=== PATIENT | female | born 1965 | race Caucasian/White ===

== ENCOUNTER 2017-06-19 11:51 | Day surgery (SDC) | payer MEDICAID, OTHER ==
[~2017-06-19] VITALS: Ht 157.5 cm; Wt 72.7 kg
[2017-06-19 12:39] VITALS: Ht 157.5 cm; Wt 72.7 kg
[2017-06-19] MEDS ORDERED: [UNRECOGNIZED DRUG - REMARK] (12:47)
[2017-06-19 13:06] VITALS: BP 119/58; PULSE 68; RESP 20
[2017-06-19] MEDS ORDERED: PROPOFOL 20 ML ONE ×2 (13:43→15:34)
--- NOTE | 2017-06-19 15:41 | OPPN ---
Date/Time of Note Date/Time of Note DATE: 06/19/17 TIME: 15:38 Proc Note GI Procedure Date 06/19/17 Indication: screening/surveillance Pre-procedure Diagnosis Colorectal cancer screening Post-procedure Diagnosis Impression: 6 mm polyp in the proximal transverse colon. Snared and retrieved Moderate-sized internal hemorrhoids. Otherwise normal colonoscopy to cecum. Plan: Follow up as scheduled] High fiber diet Annual hemoccult stool testing [Review pathology] [Surveillance colonoscopy in 5 years] . Procedure Performed: Colonoscopy (With snare polypectomy) Surgeon VICTORIA ADAMES MD See signature line Correction[facility] Case Records Supervisor none Anesthesia Type: MAC Anesthesiologist: MIESHA LOTT MD Tourniquet Time none EBL none Transfusion required none Biopsy 1: None Polyp 1: Proximal transverse colon polyp Grafts/Implants none Tubes/Drains none Complication(s) none Procedure Description After informed consent, with the patient/relatives understanding the procedure, its indications and potential risks and complications, including but not limited to: Allergic reaction, bleeding, perforation, infection, and after all pertinent questions were answered to the patient's satisfaction, the patient/ relatives signed the witnessed informed consent. Following this, premedication was administered slowly IV push under careful cardiovascular and respiratory monitoring with pulse OXIMETRY, automatic blood pressure, and night monitor. Once the sedative effect was achieved, the patient was placed in the left lateral decubitus position, digital rectal examination was performed. The colonoscope was then introduced and advanced under visual control throughout all segments of the colon including: the rectum, sigmoid, descending colon, splenic flexure, transverse colon, hepatic flexure, ascending colon and finally reaching the cecum which was clearly identified by transillumination, finger indentation and the ileocecal valve. Careful examination of the mucosa of the lower gastrointestinal tract both on insertion as well as withdrawal of the instrument disclosed the following findings: PREPARATION QUALITY: [Adequate], RECTAL EXAM: The anorectal area was visualized examined and digital rectal examination performed with the following findings: No evidence of perirectal disease, no masses. COLONIC MUCOSA: The mucosa of all segments of the colon was carefully examined and showed the following findings: There is a 6 mm polyp in the proximal transverse colon. It was snared and retrieved. Otherwise the examined mucosa appears within normal limits. There is no evidence of inflammatory changes, diverticular formation, other polyps or neoplasms, vascular malformation, or any other abnormality. The instrument was then withdrawn, the patient tolerated the procedure well and was transferred out of the Endoscopy Suite awake and in good condition to continue recovery under observation. Copies To: CC: VICTORIA ADAMES MD, MORDO MD Jun 19, 2017 15:41
[2017-06-19 16:05] VITALS: BP 116/47; RESP 14
== END 2017-06-19 16:55 | disposition home or self-care (01) ==
LOC: GIL 11:51
PROVIDERS: ATTEND Internal Medicine Gastroenterology
DX: Z12.11 Encounter for screening for malignant neoplasm of colon (principal); K64.8 Other hemorrhoids; K63.5 Polyp of colon; E66.9 Obesity, unspecified; Z68.29 Body mass index [BMI] 29.0-29.9, adult
CPT/HCPCS: 45385; 84703; 88305; Z7610

== ENCOUNTER 2017-07-04 11:45 | Emergency (ER) | payer OTHER ==
[~2017-07-04] VITALS: Ht 157.5 cm; Wt 74.0 kg
[~2017-07-04 11:45] MED LIST: [UNRECOGNIZED DRUG - REMARK]
[2017-07-04 11:47] VITALS: Ht 157.5 cm; Wt 74.0 kg
[2017-07-04] MEDS ORDERED: AMOX500C2 PO (12:08)
--- NOTE | 2017-07-04 12:12 | ERD ---
ER Documentation Chief Complaint Chief Complaint Complains of right sided facial numbness HPI 52-year-old female brought to the emergency department by her family for evaluation of right-sided facial swelling. Triage note indicates facial numbness which she does not have. She denies focal weakness or numbness at this time. She denies any headache or neurologic symptoms. Furthermore, she denies any trauma, visual acuity disturbances, sinus congestion, dental pain. ROS All systems reviewed and are negative except as per history of present illness. Medications Home Meds Active Scripts Amoxicillin* (Amoxicillin*) 500 Mg Cap, 500 MG PO TID for 7 Days, #14 CAP Prov:EL ABERNATHY 07/04/17 Reported Medications [Head Pressure] No Conflict Check 06/19/17 Allergies Allergies: Coded Allergies: No Known Allergy (Unverified , 06/19/17) PMhx/Soc History of Surgery: Yes (TUBAL LIGATION) Anesthesia Reaction: No Hx Neurological Disorder: No Hx Respiratory Disorders: No Hx Cardiac Disorders: No Hx Psychiatric Problems: No Hx Miscellaneous Medical Probl: No Hx Alcohol Use: No Hx Substance Use: No Hx Tobacco Use: No FmHx Noncontributory for chief complaint Physical Exam Vitals Vital Signs Date Time Temp Pulse Resp B/P Pulse Ox O2 Delivery O2 Flow Rate FiO2 07/04/17 11:47 98.4 72 20 167/81 99 Physical Exam GENERAL: The patient is well developed and appropriate for usual state of health in no apparent distress HEENT: Pupils equal, round, and reactive to light. EOMI. There is no scleral icterus. There are no lesions in the hairline. The tympanic members are normal. The dentition is poor but without evidence of significant gingival infection. The right side of the face is minimally swollen when compared to the left side of the face. However, there is no evidence of trauma. NECK: C-spine is soft and supple, there is no meningismus. There is no cervical lymphadenopathy. LUNGS: Clear to auscultation bilaterally. There are no rales, wheezes or rhonchi. HEART: Regular rate and rhythm, no murmurs, clicks, rubs or gallops. Neuro: Patient is awake alert and appropriate with no signs of facial asymmetry. No signs of neurologic disability. Procedures/MDM Patient was taken to a room, seen and examined Medical decision making: This is an otherwise healthy female presents the emergency department with unilateral facial swelling that appears to be minimal if at all present. At this time, based on conversations with the family, I will be treating empirically for possible facial infection. Patient has no signs of neurologic dysfunction or other high-risk concerns and otherwise appears to be appropriate for outpatient care. Departure Diagnosis: Primary Impression: Facial swelling Condition: Good Additional Instructions: Return here in 2-3 days if not improved. At that time, we will consider a CT scan to further evaluate EL ABERNATHY Jul 04, 2017 12:12
[2017-07-04 12:35] VITALS: BP 152/75; PULSE 72; RESP 18
== END 2017-07-04 13:24 | disposition home or self-care (01) ==
LOC: FTE 11:45
DX: R60.0 Localized edema (principal)
CPT/HCPCS: 99283